=== PATIENT | male | born 1990 | race Caucasian/White ===

== ENCOUNTER 2016-12-11 10:34 | Emergency (ER) | payer MEDICAID ==
[~2016-12-11 10:34] MED LIST: ALBUTEROL17 G1 IH; ALBUTEROL17 GM INH; AUGMENTIN PO; BACLOFEN10 MG PO; BACTRIM DS TABL1 TAB PO; BENADRYL25 M1 PO; BENTYL20 MG PO; BENZONATATE PO; DICLOFENAC 75 MG PO; FLEXERIL10 MG PO; HYDROMET PO; LORTAB 5/500 TA1 TA1 PO; MEDROL DOSEPAK4 MG PO; MOBIC PO; MUCINEX1200 MG/BO PO; NO MEDICATIONS; PHENERGAN PO; PHENERGAN12.5 MG PO; PHENERGAN25 M1 DOB; PHENERGAN25 M1 PO; PHENERGAN25 MG PO; PREDNISONE PO; PREDNISONE10 MG PO; TOBRAMYCIN5 ML OU; TORADOL10 MG PO; TYLENOL #3 PO; ULTRAM PO; VIBRAMYCIN100 M1 PO; VOLTAREN75 MG PO; ZITHROMAX PO; ZITHROMAX1 G/PKT PO; ZOLOFT PO; ZPAK
== END 2016-12-11 11:06 | disposition home or self-care (01) ==
LOC: SED 10:34
DX: K04.01 Reversible pulpitis (principal); K02.9 Dental caries, unspecified; F41.9 Anxiety disorder, unspecified; Z98.890 Other specified postprocedural states
CPT/HCPCS: 99282

== ENCOUNTER 2016-12-30 09:53 | Emergency (ER) | payer MEDICAID | END 2016-12-30 10:49 | disposition home or self-care (01) | LOC: SED 09:53 | DX: S39.012A Strain of muscle, fascia and tendon of lower back, initial encounter (principal); F41.9 Anxiety disorder, unspecified; G43.909 Migraine, unspecified, not intractable, without status migrainosus; F17.200 Nicotine dependence, unspecified, uncomplicated; Z98.890 Other specified postprocedural states; X50.0XXA Overexertion from strenuous movement or load, initial encounter; Y92.9 Unspecified place or not applicable | CPT/HCPCS: 99283 ==

== ENCOUNTER 2017-01-27 09:56 | Emergency (ER) | payer MEDICAID ==
[2017-01-27] MEDS ORDERED: NO MEDICATIONS (10:05)
[2017-01-27 10:32] LABS: URINE SOURCE CLEAN CATCH
[2017-01-27 10:34] LABS: URINE APPEARANCE CLEAR; URINE BILIRUBIN NEG (NEG); URINE BLOOD NEG (NEG); URINE COLOR YELLOW; URINE GLUCOSE NEG (NORM); URINE KETONE NEG (NEG); URINE LEUKOCYTE ESTERASE NEG (NEG); URINE NITRATE NEG (NEG); URINE PH 5.5 (5-8); URINE PROTEIN NEG (NEG); URINE UROBILINOGEN 0.2 MG/DL (NORM)
[2017-01-27 10:35] LABS: MICRO INDICATED? NO
[2017-01-27 10:45] LABS: BASOPHIL# 0.1 X10e3 (0-0.3); BASOPHIL% 0.7 % (0-2.5); EOSINOPHIL# 0.5 X10e3 (0-0.7); HEMATOCRIT 46.2 % (38.0-50.0); HEMOGLOBIN 15.9 gm/dL (13.0-16.0); LYMPHOCYTE# 2.4 X10e3 (1.0-3.5); LYMPHOCYTE% 19.8 % (17.0-45.0); MEAN CELL VOLUME 86.5 FL (83-96); MEAN CORPUSCULAR HEMOGLOBIN 29.8 PG (28-34); MEAN CORPUSCULAR HGB CONC 34.4 g/dL (30-36); MEAN PLATELET VOLUME 9.9 FL (6.5-11.5); MONOCYTE# 0.6 X10e3 (0-1.0); MONOCYTE% 4.7 % (3.0-12.0); NEUTROPHIL# 8.5 X10e3 (1.5-7.1); NEUTROPHIL% 70.8 % (40-75); PLATELET COUNT 200 X10e3 (140-420); RED BLOOD COUNT 5.34 X10e (3.90-5.60); RED CELL DISTRIBUTION WIDTH 14.1 % (11.0-15.5)
[2017-01-27 10:48] LABS: DIFF IND NO
[2017-01-27 11:04] LABS: ALBUMIN SERUM 4.4 g/dL (3.5-5.0); BILIRUBIN, DIRECT 0.1 mg/dL (0.0-0.2); BILIRUBIN,INDIRECT 0.4 mg/dL (0.0-0.9); BILIRUBIN,TOTAL 0.5 mg/dL (0.2-2.0); BUN/CREATININE RATIO 23.33; CALCIUM SERUM 8.7 mg/dL (8.4-10.2); CREATININE SERUM 0.6 mg/dL (0.6-1.4); GLOM FILT RATE Estimated 137.8 mL/min (>60); POTASSIUM 4.6 mmol/L (3.5-5.1); PROTEIN TOTAL SERUM 7.1 g/dL (6.0-8.3)
== END 2017-01-27 11:55 | disposition home or self-care (01) ==
LOC: SED 09:56
PROVIDERS: Emergency Medicine
DX: R11.2 Nausea with vomiting, unspecified (principal); R19.7 Diarrhea, unspecified; F17.210 Nicotine dependence, cigarettes, uncomplicated
CPT/HCPCS: 36415; 80048; 80076; 81003; 83690; 85025; 96374; 99284; J2405

== ENCOUNTER 2017-03-17 09:58 | Emergency (ER) | payer MEDICAID | END 2017-03-17 11:00 | disposition home or self-care (01) | LOC: SED 09:58 | DX: L40.9 Psoriasis, unspecified (principal); Z90.49 Acquired absence of other specified parts of digestive tract; F17.210 Nicotine dependence, cigarettes, uncomplicated | CPT/HCPCS: 96372; 99283; J2930 ==

== ENCOUNTER 2017-04-02 11:08 | Emergency (ER) | payer OTHER ==
--- NOTE | ~2017-04-02 | CT71 ---
[facility] A Service of [facility] RADIOLOGY TEXT RESULTS PATIENT: CARMELA DOWNEY JR LOCATION: SED : [birth year] UNIT #: [id number] AGE: [address]: Barrie Luo MD SEX: M ORDER DR: [id number] [place] [id number] E MR#: [id number] Acc #: [id number] NAME: CARMELA DOWNEY JR : 1990 SEX: M STUDY DATE/TIME: 04/02/2017 11:50 UNIT: SED ROOM: STUDY DESCRIPTION: CT Head Wo Contrast Attending Physician: Barrie Luo M.D. Ordering Physician: Barrie Luo M.D. Primary Care Physician: No Primary Care Physician MEDICAL IMAGING REPORT This report is preliminary unless electronic signature is present. EXAM Head CT no contrast 04/02/2017 INDICATIONS 26-year-old male with a head injury, headache, dizzy, hit head while in the shower, cut over the right eye. Injury occurred today according to the technologist. TECHNIQUE Noncontrast CT of the brain was performed. We have no comparison studies. FINDINGS This CT exam was performed with one or more of the following radiation dose reduction techniques: automatic control, adjustment of mA and/or kV according to patient size, and iterative reconstruction. Sulci and ventricles are unremarkable. No midline shift. No evidence of acute intracranial hemorrhage. There is no mass, mass effect or edema to suggest acute infarct and no extraaxial fluid collections are present. The globes are intact. The bones are intact. Chronic-appearing ethmoid and maxillary sinus disease. IMPRESSION 1. No clearly acute intracranial process. No evidence of acute intracranial hemorrhage. 2. Chronic-appearing sinus disease. Dictated by... Lobito King M.D. THIS IS AN ELECTRONICALLY VERIFIED REPORT Lobito King M.D. at 04/02/2017 3:05 PM JLY/rnr [facility] A Service of [facility] RADIOLOGY TEXT RESULTS PATIENT: CARMELA DOWNEY JR LOCATION: [facility] [place] : [birth year] UNIT #: [id number] AGE: [address]: Barrie Luo MD SEX: M ORDER DR: TD: 04/02/2017 14:15 JOB #: [id number] MEDICAL IMAGING REPORT Page 1 of 1
--- NOTE | ~2017-04-02 | CT52 ---
[facility] A Service of [facility] RADIOLOGY TEXT RESULTS PATIENT: CARMELA DOWNEY JR LOCATION: SED : [birth year] UNIT #: [id number] AGE: [address]: Barrie Lou MD SEX: M ORDER DR: [id number] [place] [id number] E MR#: [id number] Acc #: [id number] NAME: CARMELA DOWNEY JR : 1990 SEX: M STUDY DATE/TIME: 04/02/2017 11:44 UNIT: SED ROOM: STUDY DESCRIPTION: CT Cervical Spine Wo Cont Attending Physician: Barrie Luo M.D. Ordering Physician: Barrie Luo M.D. Primary Care Physician: No Primary Care Physician MEDICAL IMAGING REPORT This report is preliminary unless electronic signature is present. EXAM CT cervical spine. HISTORY Head injury. Headache, dizzy. Hit head while in shower, cut over right eye. TECHNIQUE CT cervical spine performed. Bone and soft tissue windows reviewed. Sagittal and coronal reconstructions performed. This CT exam was performed with one or more of the following radiation dose reduction techniques: automatic exposure control, adjustment of mA and/or kV according to patient size, and iterative reconstruction. COMPARISON No prior cervical spine CTs for comparison. Please see today's dedicated CT of the head for full discussion of intracranial findings. FINDINGS Appearance of the foramen magnum and cerebellum raises possibility of Chiari type 1 malformation. This would best be further evaluated in the absence of prior studies with MRI of the brain on an elective basis. No acute-appearing abnormality in the visualized brain. The visualized paranasal sinuses and mastoid air cells are clear. Visualized nasopharyngeal, oropharyngeal, pharyngeal mucosal, retropharyngeal spaces, larynx, subglottic airway, superior mediastinum unremarkable. Azygos fissure in the right upper hemithorax. Visualized lung apices clear. Thyroid, submandibular, parotid glands unremarkable. Scattered small lymph nodes bilaterally. There is a slightly enlarged subcutaneous node in the right suboccipital region measuring about 12 mm in short axis. Correlate with exam. Clinical followup recommended. There is a mildly prominent left submandibular node measuring about 1 cm in short axis. It displays a distinct fatty hilum. Given the patient's age, in the absence [facility]. [facility] A Service of [facility] RADIOLOGY TEXT RESULTS PATIENT: CARMELA DOWNEY JR LOCATION: [facility] [place] : [birth year] UNIT #: [id number] AGE: [address]: Barrie Luo MD SEX: M ORDER DR: of risk factors, these nodes are favored to be benign/reactive in nature. There is no traumatic appearing paraspinal soft tissue abnormality. The cervical spine shows some straightening of normal cervical lordosis. No indication of traumatic malalignment. Vertebral body heights, intervertebral disc space heights within normal limits. Facet joint relationships normal. Study slightly degraded by beam hardening artifact related to the patient's shoulders. C2-C3: Unremarkable. C3-C4: Unremarkable. C4-C5: Possible small posterior central and right paracentral disc bulge. No cord contact. Minimal right paracentral spinal canal narrowing. Neural foramina unremarkable. C5-C6: Level difficult to assess given the beam hardening/streak artifact. Posterior central disc bulge with anterior cord contact and resulting mild to moderate central spinal canal narrowing not excluded. The neural foramina are unremarkable. C6-C7: Similar constellation of findings. Significant beam-hardening artifact. Posterior disc bulge with anterior cord contact and mild central spinal canal narrowing not excluded. The neural foramina are unremarkable. C7-T1, T1-T2: Unremarkable. IMPRESSION 1. There is no evidence of traumatic fracture or malalignment. Study is significantly degraded by beam hardening artifact related to patient's shoulders. There is a small posterior central and right paracentral disc bulge C4-C5 with probable anterior right paracentral cord contact and mild right paracentral spinal canal narrowing. At the C5-C6 and C6-C7 levels. There are possible posterior disc bulges with anterior cord contact. There is significant artifact at these 2 levels and the appearance could be artifactual in nature. If it would assist in management, spinal canal and neural foraminal contents could best be further evaluated with elective MRI if the patient is a candidate. 2. There are scattered small cervical lymph nodes bilaterally. There are some mildly enlarged cervical lymph nodes as noted in body of report. Etiology and significance unclear. In the absence of risk factors and given the patient's young age, benign etiology favored. Clinical followup recommended. 3. Question Chiari type 1 malformation of the cerebellar tonsils. This is a questionable finding on this examination. Please see dedicated CT head. If it would assist in management, this could be further evaluated with MRI. [facility] A Service of [facility] RADIOLOGY TEXT RESULTS PATIENT: CARMELA DOWNEY JR LOCATION: SED : [birth year] UNIT #: [id number] AGE: [address]: Barrie Luo MD SEX: M ORDER DR: 4. Not mentioned in the body of report, there do appear to be areas of rounded mucosal thickening in the right maxillary sinus most likely representing mucous retention cysts. Dictated by... Stan Ortega M.D. THIS IS AN ELECTRONICALLY VERIFIED REPORT Stan Ortega M.D. at 04/02/2017 6:03 PM Da TD: 04/02/2017 13:58 JOB #: [id number] MEDICAL IMAGING REPORT Page 1 of 1
== END 2017-04-02 13:08 | disposition home or self-care (01) ==
LOC: SED 11:08
DX: S06.0X9A Concussion with loss of consciousness of unspecified duration, initial encounter (principal); S16.1XXA Strain of muscle, fascia and tendon at neck level, initial encounter; E66.9 Obesity, unspecified; I10 Essential (primary) hypertension; F17.210 Nicotine dependence, cigarettes, uncomplicated; Z90.89 Acquired absence of other organs; W01.198A Fall on same level from slipping, tripping and stumbling with subsequent striking against other object, initial encounter
CPT/HCPCS: 70450; 72125; 90471; 90715; 96372; 99284; J1170; J2550

== ENCOUNTER 2017-04-07 12:03 | Emergency (ER) | payer OTHER ==
--- NOTE | ~2017-04-07 | CT71 ---
[facility] A Service [facility] RADIOLOGY TEXT RESULTS PATIENT: CARMELA DOWNEY JR LOCATION: SED : [birth year] UNIT #: [id number] AGE: [address]: Lobito Thao MD SEX: M ORDER DR: [id number] [place] [id number] E MR#: [id number] Acc #: [id number] NAME: CARMELA DOWNEY JR : 1990 SEX: M STUDY DATE/TIME: 04/07/2017 13:04 UNIT: SED ROOM: STUDY DESCRIPTION: CT Head Wo Contrast Attending Physician: Lobito Thao M.D. Ordering Physician: Lobito Thao M.D. Primary Care Physician: Primary Care Physician No MEDICAL IMAGING REPORT This report is preliminary unless electronic signature is present. EXAM CT head without contrast, 04/07/2017 HISTORY 26-year-old male with persistent dizziness and headache status post head trauma 1 week ago. Concussion. COMPARISON CT head 04/02/2017 TECHNIQUE Routine unenhanced axial images performed through the brain. This CT exam was performed with one or more of the following radiation dose reduction techniques: automatic exposure control, adjustment of mA and/or kV according to patient size, and iterative reconstruction. FINDINGS No hemorrhage, acute infarction, mass lesion, or abnormal extraaxial fluid collection. No midline shift or focal mass effect. Ventricular system is normal in size and configuration. There is slight prominence of the cerebellar tonsils in the foramen magnum, which could suggest a Chiari-I malformation. This could be further characterized with a nonemergent brain MRI when the patient is clinically able. No acute bony abnormality. There is mucosal thickening again noted throughout the visualized paranasal sinuses, which appear slightly worse compared to 04/02/2017. Visualized mastoid air cells are clear. IMPRESSION 1. No acute intracranial abnormality. No significant change from 04/02/2017. 2. Slight prominence of the cerebellar tonsils and the foramen magnum. [facility] A Service [facility] RADIOLOGY TEXT RESULTS PATIENT: CARMELA DOWNEY JR LOCATION: SED : [birth year] UNIT #: [id number] AGE: [address]: Lobito Thao MD SEX: M ORDER DR: This is nonspecific, but could suggest a Chiari-I malformation. Suggest further characterization with a nonemergent brain MRI when the patient is clinically able. 3. Paranasal sinus mucosal thickening, slightly worse when compared to 04/02/2017. Dictated by... Manny Null M.D. THIS IS AN ELECTRONICALLY VERIFIED REPORT Manny Null M.D. at 04/08/2017 5:06 PM NAOMI/hailee TD: 04/07/2017 22:48 JOB #: [id number] MEDICAL IMAGING REPORT Page 1 of 1
[2017-04-07] MEDS ORDERED: NORVASC (12:10)
[2017-04-07] MEDS ORDERED: LORTAB 5-325 M1 EACH (12:11)
== END 2017-04-07 14:19 | disposition home or self-care (01) ==
LOC: SED 12:03
DX: G44.209 Tension-type headache, unspecified, not intractable (principal); F41.9 Anxiety disorder, unspecified; J32.9 Chronic sinusitis, unspecified; F17.200 Nicotine dependence, unspecified, uncomplicated; Z90.89 Acquired absence of other organs
CPT/HCPCS: 70450; 99284

== ENCOUNTER 2017-05-13 11:26 | Emergency (ER) | payer OTHER ==
[~2017-05-13 11:26] MED LIST changes: +LORTAB 5-325 M1 EACH; +NORVASC
== END 2017-05-13 12:47 | disposition home or self-care (01) ==
LOC: SED 11:26
DX: F41.1 Generalized anxiety disorder (principal); I10 Essential (primary) hypertension; F17.210 Nicotine dependence, cigarettes, uncomplicated
CPT/HCPCS: 99283